=== PATIENT | male | born 1990 | race Caucasian/White ===

== ENCOUNTER 2019-09-27 15:47 | Inpatient (IN) | payer MEDICAID, OTHER, SELFPAY ==
[~2019-09-27] VITALS: Ht 172.7 cm; Wt 177.5 kg
[2019-09-27] MEDS ORDERED: PROZ10 PO (17:24)
[2019-09-27] MEDS ORDERED: BENZ2TAB10 PO (17:24)
[2019-09-27 17:51] LABS: BASOPHILS % (AUTO) 0.4 % (0.0-2.0); EOSINOPHILS % (AUTO) 0.4 % (1.0-6.0); HEMATOCRIT 45.7 % (41-53); HEMOGLOBIN 15.4 g/dL (13.5-17.5); LYMPHOCYTES # (AUTO) 1.4 K/uL (1.0-4.8); LYMPHOCYTES % (AUTO) 20.9 % (22.0-44.0); MEAN CORPUSCULAR HEMOGLOBIN 31.3 pg (26.0-34.0); MEAN CORPUSCULAR HGB CONC 33.6 G/dL (31.0-37.0); MEAN CORPUSCULAR VOLUME 93 fL (80-100); MONOCYTES # (AUTO) 0.5 K/uL (0.1-1.0); MONOCYTES % (AUTO) 7.2 % (2.0-9.0); NEUTROPHILS # (AUTO) 4.8 K/uL (1.8-7.7); NEUTROPHILS % (AUTO) 71.1 % (40.0-70.0); PLATELET COUNT (AUTO) 247 K/uL (150-450); RED CELL DISTRIBUTION WIDTH 13.1 % (11.5-14.5)
[2019-09-27 18:06] LABS: ALANINE AMINOTRANSFERASE 35 U/L (12-78); ALKALINE PHOSPHATASE 79 U/L (46-116); ANION GAP 8 mmol/L (8-16); ASPARTATE AMINOTRANSFERASE 20 U/L (15-37); BILIRUBIN,TOTAL 0.5 mg/dL (0.1-1.0); CALCIUM, TOTAL 8.9 mg/dL (8.8-10.5); CARBON DIOXIDE 30 mmol/L (22-29); CHLORIDE 102 mmol/L (98-107); CREATININE 0.92 mg/dL (0.60-1.30); GLOMERULAR FILTR. RATE CALC > 60 mL/min (>60); GLUCOSE,RANDOM 97 mg/dL (70-110); POTASSIUM 4.1 mmol/L (3.5-5.1); SODIUM SERUM 140 mmol/L (136-145); TOTAL PROTEIN, SERUM 7.2 g/dL (6.4-8.2); UREA NITROGEN, BLOOD 12 mg/dL (7-18)
[2019-09-27 18:31] LABS: AMPHET/METH SCREEN,URINE NEGATIVE (NEGATIVE); BARBITURATE SCREEN, URINE NEGATIVE (NEGATIVE); BENZODIAZEPINES SCREEN,URINE NEGATIVE (NEGATIVE); CANNABINOID SCREEN,URINE NEGATIVE (NEGATIVE); COCAINE SCREEN,URINE NEGATIVE (NEGATIVE); METHADONE SCREEN, URINE NEGATIVE (NEGATIVE); OPIATE SCREEN,URINE NEGATIVE (NEGATIVE)
[2019-09-27 18:33] LABS: PHENCYCLIDINE SCREEN,URINE NEGATIVE (NEGATIVE)
[2019-09-27] MEDS ORDERED: HALOPERIDOL 5 MG TABLET PO PRN (19:45)
[2019-09-27] MEDS: LORazepam 2 MG TABLET PO PRN (21:01)
[2019-09-27 21:17] LABS: APPEARANCE,URINE CLEAR (CLEAR); BILIRUBIN,URINE NEGATIVE (NEGATIVE); GLUCOSE, URINE (UA) NEGATIVE (NEGATIVE); KETONES,URINE NEGATIVE (NEGATIVE); LEUKOCYTE ESTERASE ,URINE NEGATIVE (NEGATIVE); NITRATE,URINE NEGATIVE (NEGATIVE); OCCULT BLOOD,URINE NEGATIVE (NEGATIVE); PROTEIN,URINE NEGATIVE (NEGATIVE); UROBILINOGEN,URINE 0.2 mg/dL (<=1.0)
[2019-09-28 01:00] VITALS: BP 105/60
[2019-09-28] MEDS ORDERED: INFLUENZA VIRUS VACCINE QVS 2019-20 (3YR+)/PF 60 MCG/0.5 ML SYRINGE IM ONE (01:45)
[2019-09-28 08:08] VITALS: BP 110/63
[2019-09-28 09:23] LABS: CHOL/HDL RATIO 2.5 (4.2-7.3)
[2019-09-28] MEDS ORDERED: ALBUTEROL SULFATE HFA 90 MCG/PUFF 8 GM INHALER IH PRN (11:45)
[2019-09-28] MEDS ORDERED: IBUPROFEN 400 MG TABLET PO PRN (11:45)
[2019-09-28] MEDS ORDERED: PETROLATUM,WHITE 28 GM JELLY TP PRN (11:45)
[2019-09-28] MEDS ORDERED: DOCUSATE SODIUM 100 MG CAPSULE PO PRN (11:45)
[2019-09-28] MEDS ORDERED: GuaiFENesin/D-METHORPHAN [SUGAR-FREE] 200-20MG/10 ML SYRUP UDCUP PO PRN (11:45)
[2019-09-28] MEDS ORDERED: ACETAMINOPHEN 325 MG TABLET PO PRN (11:45)
[2019-09-28] MEDS ORDERED: MAG HYDROX/AL HYDROX/SIMETH ES 30 ML SUSPENSION UDCUP PO PRN (11:45)
[2019-09-28] MEDS ORDERED: LOPERAMIDE HCL 2 MG CAPSULE PO PRN (11:45)
[2019-09-28] MEDS ORDERED: MAGNESIUM HYDROXIDE SUSPENSION 30 ML UDCUP PO PRN (11:45)
[2019-09-28] MEDS ORDERED: ONDANSETRON HCL 4 MG TABLET PO PRN (11:45)
[2019-09-28] MEDS ORDERED: CloNIDine HCL 0.1 MG TABLET PO PRN (11:45)
[2019-09-28] MEDS ORDERED: NICOTINE 14 MG/24 HOUR PATCH TD PRN (11:45)
[2019-09-28 16:12] VITALS: BP 108/78
[2019-09-28] MEDS: LORazepam 2 MG TABLET PO PRN (17:10)
[2019-09-28] MEDS: OLANZapine 10 MG TABLET PO SCH (21:15)
[2019-09-28] MEDS: ZOLPIDEM TARTRATE 10 MG TABLET PO PRN (21:15)
[2019-09-29 06:44] VITALS: BP 101/64
[2019-09-29 08:40] VITALS: BP 105/40
[2019-09-29] MEDS: LORazepam 2 MG TABLET PO PRN ×2 (16:56→23:05)
[2019-09-29 17:09] VITALS: BP 123/76
[2019-09-29] MEDS: ZOLPIDEM TARTRATE 10 MG TABLET PO PRN (20:48)
[2019-09-29] MEDS: OLANZapine 10 MG TABLET PO SCH (20:48)
[2019-09-30 03:33] VITALS: BP 119/71
[2019-09-30 09:00] VITALS: BP 123/65
[2019-09-30 16:15] VITALS: BP 120/76
[2019-09-30] MEDS: LORazepam 2 MG TABLET PO PRN (20:26)
[2019-09-30] MEDS: OLANZapine 10 MG TABLET PO SCH (20:26)
[2019-10-01 00:27] VITALS: BP 101/57
[2019-10-01] MEDS: ZOLPIDEM TARTRATE 10 MG TABLET PO PRN ×2 (00:30→20:23)
[2019-10-01 08:55] VITALS: BP 111/67
[2019-10-01 16:11] VITALS: BP 109/65
[2019-10-01] MEDS: OLANZapine 10 MG TABLET PO SCH (20:23)
[2019-10-01] MEDS: LORazepam 2 MG TABLET PO PRN (20:46)
[2019-10-02 05:15] VITALS: BP 117/78
[2019-10-02 16:00] VITALS: BP 100/60
[2019-10-02] MEDS: OLANZapine 10 MG TABLET PO SCH (20:19)
[2019-10-02] MEDS: LORazepam 2 MG TABLET PO PRN (20:19)
[2019-10-02] MEDS: ZOLPIDEM TARTRATE 10 MG TABLET PO PRN (20:21)
[2019-10-03 05:36] VITALS: BP 124/85
[2019-10-03] MEDS ORDERED: OLAN10TA20 PO (10:11)
== END 2019-10-03 13:32 | disposition home or self-care (01) | DRG 750 ==
LOC: EMS 15:48 → B3A 22:30
DX: F20.0 Paranoid schizophrenia (principal); I95.9 Hypotension, unspecified; N17.9 Acute kidney failure, unspecified; R45.851 Suicidal ideations; D72.829 Elevated white blood cell count, unspecified; K59.00 Constipation, unspecified; K21.9 Gastro-esophageal reflux disease without esophagitis; F10.10 Alcohol abuse, uncomplicated; Z59.0 Homelessness
CPT/HCPCS: G0480

== ENCOUNTER 2022-03-26 05:39 | Inpatient (IN) | payer MEDICAID, OTHER ==
[~2022-03-26] VITALS: Ht 177.8 cm; Wt 75.9 kg
[~2022-03-26 05:39] MED LIST: OLAN10 PO
[2022-03-26 07:17] LABS: BASOPHILS % (AUTO) 0.4 % (0.0-2.0); EOSINOPHILS % (AUTO) 0.1 % (1.0-6.0); HEMATOCRIT 47.9 % (41-53); HEMOGLOBIN 16.3 g/dL (13.5-17.5); LYMPHOCYTES # (AUTO) 1.1 K/uL (1.0-4.8); LYMPHOCYTES % (AUTO) 9.6 % (22.0-44.0); MEAN CORPUSCULAR HEMOGLOBIN 31.7 pg (26.0-34.0); MEAN CORPUSCULAR HGB CONC 34.1 G/dL (31.0-37.0); MEAN CORPUSCULAR VOLUME 93 fL (80-100); NEUTROPHILS # (AUTO) 9.8 K/uL (1.8-7.7); NEUTROPHILS % (AUTO) 81.9 % (40.0-70.0); PLATELET COUNT (AUTO) 274 K/uL (150-450); RED BLOOD CELL COUNT(AUTO) 5.15 MIL/uL (4.50-5.90); RED CELL DISTRIBUTION WIDTH 13.1 % (11.5-14.5)
[2022-03-26 07:24] LABS: COVID AG,FIA SOURCE NASOPHARYNGEAL
[2022-03-26 07:28] LABS: ANION GAP 7 mmol/L (8-16); CALCIUM, TOTAL 9.2 mg/dL (8.8-10.5); CARBON DIOXIDE 31 mmol/L (22-29); CHLORIDE 103 mmol/L (98-107); CREATININE 0.92 mg/dL (0.60-1.30); GLOMERULAR FILTR. RATE CALC > 60 mL/min (>60); GLUCOSE,RANDOM 93 mg/dL (70-110); POTASSIUM 4.1 mmol/L (3.5-5.1); SODIUM SERUM 141 mmol/L (136-145); UREA NITROGEN, BLOOD 23 mg/dL (7-18)
[2022-03-26 07:34] LABS: ALANINE AMINOTRANSFERASE 34 U/L (12-78); ALBUMIN 4.6 g/dL (3.4-5.0); ALKALINE PHOSPHATASE 93 U/L (46-116); ASPARTATE AMINOTRANSFERASE 18 U/L (15-37); TOTAL PROTEIN, SERUM 7.8 g/dL (6.4-8.2)
[2022-03-26] MEDS ORDERED: HALOPERIDOL 5 MG TABLET PO PRN (10:45)
[2022-03-26] MEDS ORDERED: ZOLPIDEM TARTRATE 10 MG TABLET PO PRN (10:45)
[2022-03-26] MEDS ORDERED: DOCUSATE SODIUM 100 MG CAPSULE PO PRN (13:30)
[2022-03-26] MEDS ORDERED: ALBUTEROL SULFATE HFA 90 MCG/PUFF 8 GM INHALER IH PRN (13:30)
[2022-03-26] MEDS ORDERED: MAG HYDROX/AL HYDROX/SIMETH ES 30 ML SUSPENSION UDCUP PO PRN (13:30)
[2022-03-26] MEDS ORDERED: MAGNESIUM HYDROXIDE SUSPENSION 30 ML UDCUP PO PRN (13:30)
[2022-03-26] MEDS ORDERED: LOPERAMIDE HCL 2 MG CAPSULE PO PRN (13:30)
[2022-03-26] MEDS ORDERED: BACITRACIN 28 GM OINTMENT TP PRN (13:30)
[2022-03-26] MEDS ORDERED: IBUPROFEN 600 MG TABLET PO PRN (13:30)
[2022-03-26] MEDS ORDERED: ONDANSETRON HCL 4 MG TABLET PO PRN (13:30)
[2022-03-26] MEDS ORDERED: PETROLATUM,WHITE 28 GM JELLY TP PRN (13:30)
[2022-03-26] MEDS ORDERED: ACETAMINOPHEN 325 MG TABLET PO PRN (13:30)
[2022-03-26] MEDS ORDERED: BENZOCAINE/MENTHOL LOZENGE PO PRN (13:30)
[2022-03-26] MEDS ORDERED: OMEPRAZOLE 20 MG CAPSULE PO PRN (13:30)
[2022-03-26] MEDS ORDERED: CloNIDine HCL 0.1 MG TABLET PO PRN (13:30)
[2022-03-26 13:41] VITALS: BP 103/63
[2022-03-26 16:24] VITALS: BP 11/61
[2022-03-26] MEDS: LORazepam 2 MG TABLET PO PRN (18:29)
[2022-03-27 05:19] VITALS: BP 107/59
[2022-03-27 08:17] VITALS: BP 110/64
[2022-03-27] MEDS: LORazepam 2 MG TABLET PO PRN (10:07)
[2022-03-27 16:26] VITALS: BP 102/62
[2022-03-27] MEDS: DIVALPROEX SODIUM 500 MG DR TABLET PO SCH (16:41)
[2022-03-27] MEDS: OLANZapine 7.5 MG TABLET PO SCH (20:21)
[2022-03-28 05:29] VITALS: BP 108/62
[2022-03-28 08:18] VITALS: BP 115/60
[2022-03-28] MEDS: DIVALPROEX SODIUM 500 MG DR TABLET PO SCH ×2 (08:32→16:26)
[2022-03-28] MEDS: LORazepam 2 MG TABLET PO PRN (08:32)
[2022-03-28 16:08] VITALS: BP 100/69
[2022-03-28] MEDS: OLANZapine 7.5 MG TABLET PO SCH (20:15)
[2022-03-29 04:03] VITALS: BP 98/53
[2022-03-29 08:06] VITALS: BP 101/63
[2022-03-29] MEDS: LORazepam 2 MG TABLET PO PRN (08:16)
[2022-03-29] MEDS: DIVALPROEX SODIUM 500 MG DR TABLET PO SCH ×2 (08:16→16:17)
[2022-03-29 16:10] VITALS: BP 119/61
[2022-03-29] MEDS: OLANZapine 7.5 MG TABLET PO SCH (20:10)
[2022-03-30 04:14] VITALS: BP 120/68
[2022-03-30 08:45] VITALS: BP 108/57
[2022-03-30] MEDS: LORazepam 2 MG TABLET PO PRN ×2 (09:24→16:41)
[2022-03-30] MEDS: DIVALPROEX SODIUM 500 MG DR TABLET PO SCH ×2 (09:24→16:36)
[2022-03-30 16:07] VITALS: BP 106/61
[2022-03-30] MEDS: OLANZapine 7.5 MG TABLET PO SCH (20:16)
[2022-03-31 04:10] VITALS: BP 95/62
[2022-03-31 08:24] VITALS: BP 105/62
[2022-03-31] MEDS: DIVALPROEX SODIUM 500 MG DR TABLET PO SCH ×2 (08:45→17:19)
[2022-03-31] MEDS: LORazepam 2 MG TABLET PO PRN (08:45)
[2022-03-31 16:34] VITALS: BP 102/60
[2022-03-31] MEDS: OLANZapine 7.5 MG TABLET PO SCH (21:13)
[2022-04-01] MEDS: LORazepam 2 MG TABLET PO PRN ×2 (01:06→10:36)
[2022-04-01 02:14] VITALS: BP 108/65
[2022-04-01 08:12] VITALS: BP 102/71
[2022-04-01] MEDS: DIVALPROEX SODIUM 500 MG DR TABLET PO SCH ×2 (08:37→16:35)
[2022-04-01 16:50] VITALS: BP 124/68
[2022-04-01] MEDS: OLANZapine 7.5 MG TABLET PO SCH (20:16)
[2022-04-02 01:01] VITALS: BP 118/62
[2022-04-02] MEDS: DIVALPROEX SODIUM 500 MG DR TABLET PO SCH ×2 (08:20→16:41)
[2022-04-02 08:27] VITALS: BP 105/63
[2022-04-02 11:51] LABS: GLUCOMETER DEV NAME(LOC) POC.BV
[2022-04-02 16:10] VITALS: BP 130/72
[2022-04-02] MEDS: OLANZapine 7.5 MG TABLET PO SCH (20:36)
[2022-04-03 03:36] VITALS: BP 105/62
[2022-04-03 08:09] VITALS: BP 112/62
[2022-04-03] MEDS: DIVALPROEX SODIUM 500 MG DR TABLET PO SCH ×2 (08:44→17:14)
[2022-04-03 16:40] VITALS: BP 113/65
[2022-04-03] MEDS: OLANZapine 7.5 MG TABLET PO SCH (21:15)
[2022-04-04 04:04] VITALS: BP 101/68
[2022-04-04] MEDS: DIVALPROEX SODIUM 500 MG DR TABLET PO SCH (08:25)
[2022-04-04 08:34] VITALS: BP 116/60
[2022-04-04] MEDS ORDERED: OLAN7.5T22 PO (13:39)
[2022-04-04] MEDS ORDERED: DIVA-112 PO (13:40)
== END 2022-04-04 15:30 | disposition home or self-care (01) | DRG 750 ==
LOC: EMS 05:40 → B3A 11:28
PROVIDERS: ADMIT Psychiatry & Neurology Psychiatry; ATTEND Psychiatry & Neurology Psychiatry
DX: F25.0 Schizoaffective disorder, bipolar type (principal); R45.851 Suicidal ideations; Z59.00 Homelessness unspecified; F41.9 Anxiety disorder, unspecified; Z20.822 Contact with and (suspected) exposure to COVID-19; G47.00 Insomnia, unspecified; I10 Essential (primary) hypertension; K21.9 Gastro-esophageal reflux disease without esophagitis; F19.10 Other psychoactive substance abuse, uncomplicated; Z72.0 Tobacco use; Z71.6 Tobacco abuse counseling
CPT/HCPCS: 80053; 80164; 85025; 99285; G0480